=== PATIENT | female | born 1995 | race Two or more races ===

== ENCOUNTER 2020-06-12 16:58 | Emergency (ER) | payer OTHER ==
[~2020-06-12] VITALS: Ht 147.3 cm; Wt 52.2 kg
[2020-06-12] MEDS ORDERED: BACTRIM DS TAB1 EACH PO (18:15)
[2020-06-12] MEDS ORDERED: DOLOGEN CAPLET1 EACH PO (18:15)
== END 2020-06-12 19:24 | disposition home or self-care (01) ==
LOC: ER 16:58
DX: L05.01 Pilonidal cyst with abscess (principal)